=== PATIENT | female | born 1995 | race African-American/Black ===

== ENCOUNTER 2020-11-07 03:49 | Emergency (ER) | payer BC, OTHER ==
[~2020-11-07] VITALS: Ht 167.6 cm; Wt 80.3 kg
[~2020-11-07 03:49] MED LIST: ACYCLOVIR 200200 MG PO; BACTRIM DS TAB1 EACH PO; TRAMADOL 50 MG50 MG PO
[2020-11-07] MEDS ORDERED: VALACYCLOVIR1000 MG PO (04:04)
[2020-11-07 05:17] LABS: URINE BILIRUBIN NEGATIVE (Negative); URINE BLOOD 1+ (Negative); URINE CLARITY CLEAR; URINE COLOR YELLOW; URINE GLUCOSE-RANDOM* NEGATIVE (Negative); URINE KETONES 1+ (Negative); URINE LEUKOCYTES-REFLEX NEGATIVE (Negative); URINE NITRITE-REFLEX NEGATIVE (Negative); URINE PROTEIN (DIPSTICK) NEGATIVE (Negative); URINE SPECIFIC GRAVITY >= 1.030 (1.005-1.035)
[2020-11-07 05:36] LABS: BACTERIA-REFLEX 1-9 Few /HPF (None Seen); CASTS None Seen /LPF (None Seen); CRYSTALS None Seen /LPF (None Seen); MUCUS 4-6 Moderate strn/LPF (None Seen); SQUAMOUS 4-10 Moderate /LPF (0-3); URINE RBC 3-10 Few /HPF (NONE SEEN); URINE WBC-REFLEX 0-5 Rare /HPF (0-5)
[2020-11-07] MEDS ORDERED: DIFLUCAN150 MG PO (06:54)
[2020-11-07 07:01] VITALS: BP 114/69
== END 2020-11-07 07:02 | disposition home or self-care (01) ==
LOC: ER 03:49
PROVIDERS: Emergency Medicine
DX: B37.3 Candidiasis of vulva and vagina (principal); Z90.89 Acquired absence of other organs; Z79.899 Other long term (current) drug therapy